=== PATIENT | male | born 1970 ===

== ENCOUNTER 2019-10-03 11:28 | Emergency (ER) | payer OTHER ==
[2019-10-03 13:24] VITALS: BP 161/107
--- NOTE | 2019-10-03 14:03 | UC ---
Headache HPI - HPI Summary HPI Summary: headache x 7 days located left side of head / behind his left eye pain is 8 out 10, sharp , no radiation , having visual disturbance of the left eye limited peripheral vision and diplopia , no n/v, no problem with speech , no facial weakness, no upper or lower ext. weakness, no chest pain - History Of Current Complaint Chief Complaint: UCHeadache Stated Complaint: HEADACHES, SINUS ISSUE Time Seen by Provider: 10/03/19 13:27 Hx Obtained From: Patient Onset/Duration: Gradual Onset, Lasting Days - 7, Still Present Onset Of Symptoms: Gradual Currently Pain Is: Moderate Pain Intensity: 7 Pain Scale Used: 0-10 Numeric Timing: Constant Character: Dull, Throbbing Location of Headache: Frontal - left, Temporal - left Aggravating Factor(s): Nothing Allevating Factor(s): Nothing Associated Signs And Symptoms: Positive: Visual Changes. Negative: Dizziness, Seizure, Nausea, Vomiting, Sinus Pressure, Fever, Neck Pain, Neck Stiffness, Decreased LOC - Allergies/Home Medications Allergies/Adverse Reactions: Allergies Allergy/AdvReac Type Severity Reaction Status Date / Time No Known Allergies Allergy Verified 10/03/19 13:18 Home Medications: Home Medications NK [No Home Medications Reported] 10/03/19 [History Confirmed 10/03/19] PMH/Surg Hx/FS Hx/Imm Hx Cardiovascular History: Hypertension - Surgical History Surgical History: None - Family History Known Family History: Positive: Hypertension - Social History Alcohol Use: None Substance Use Type: None Smoking Status (MU): Heavy Every Day Tobacco Smoker Type: Cigarettes Amount Used/How Often: 1 PPD Length of Time of Smoking/Using Tobacco: 20 years Review of Systems All Other Systems Reviewed And Are Negative: Yes Constitutional: Positive: Negative Skin: Positive: Negative Eyes: Positive: Diplopia ENT: Positive: Negative Respiratory: Positive: Negative Neurological/Mental Status: Positive: Headache Is Patient Immunocompromised?: No Physical Exam Triage Information Reviewed: Yes Appearance: Well-Nourished, Pain Distress Vital Signs: Initial Vital Signs Temp 98.2 F 10/03/19 13:18 Pulse 75 10/03/19 13:18 Resp 16 10/03/19 13:18 BP 161/107 10/03/19 13:18 Pulse Ox 100 10/03/19 13:18 Vital Signs Reviewed: Yes Eye Exam: Normal Eyes: Positive: Conjunctiva Clear, Other: - limited peripheral vision of the left eye ENT: Positive: Normal ENT inspection, Hearing grossly normal, Pharynx normal Neck: Positive: Supple, Nontender, No Lymphadenopathy Respiratory: Positive: Chest non-tender Discharge ED - Discharge Plan Condition: Stable Disposition: HOME Patient Education Materials: Acute Headache (ED), Hypertension (ED), Diplopia ( ED) Referrals: No Primary Care Phys,NOPCP [Primary Care Provider] - Additional Instructions: please go to [facility] ED for evaluation and tx of left side headaches , double vision / htn - Billing Disposition and Condition Condition: STABLE Disposition: Home
== END 2019-10-03 13:45 | disposition home or self-care (01) ==
LOC: UCCORT 11:28
DX: H53.2 Diplopia (principal); I10 Essential (primary) hypertension; R51 Headache; F17.210 Nicotine dependence, cigarettes, uncomplicated
CPT/HCPCS: 99212; G0463